=== PATIENT | female | born 1980 | race Caucasian/White ===

== ENCOUNTER 2018-01-05 12:58 | Emergency (ER) | payer BC ==
[2018-01-05 13:03] VITALS: BP 111/74; PULSE 64; TEMP 98.5; BMI 40.0
--- NOTE | 2018-01-05 13:53 | PDOC ---
History of Present Illness - General Chief Complaint: Pain Stated Complaint: LEFT FACIAL PAIN Time Seen by Provider: 01/05/18 13:11 - History of Present Illness Initial Comments: 01/05/18 13:48 37 F with h/o hypothyroid presents to ER with L facial pain x 3 days. Pt complains of pain under her L eye in her L cheekbone. Denies tooth or gum pain, denies swelling of gums. Denies fever/chills. Denies headache/neck pain. Denies ear pain. Pt went to dentist 2 days ago who did not see any signs of dental infection. She was given amoxicillin. Pt then went to urgent care yesterday and was started on augmentin for possible sinus infection. Pt states that her pain is still there today, so she came to this ER for evaluation. Past History - Past Medical History Allergies/Adverse Reactions: Allergies Allergy/AdvReac Type Severity Reaction Status Date / Time No Known Allergies Allergy Verified 01/05/18 12:59 Home Medications: Ambulatory Orders Amoxicillin/Potassium Clav [Augmentin 875-125 Tablet] 1 each PO BID 01/05/18 Levothyroxine [Synthroid -] 75 mcg PO DAILY 01/05/18 COPD: No Thyroid Disease: Yes - Suicide/Smoking/Psychosocial Hx Smoking History: Never smoked Review of Systems - Review of Systems Comments:: 01/05/18 13:53 "GENERAL/CONSTITUTIONAL: No fever or chills. No weakness. HEAD, EYES, EARS, NOSE AND THROAT: +L face pain, No change in vision. No ear pain or discharge. No sore throat. CARDIOVASCULAR: No chest pain or shortness of breath. RESPIRATORY: No cough, wheezing, or hemoptysis. GASTROINTESTINAL: No nausea, vomiting, diarrhea or constipation. GENITOURINARY: No dysuria, frequency, or change in urination. MUSCULOSKELETAL: No joint or muscle swelling or pain. No neck or back pain. SKIN: No rash NEUROLOGIC: No headache, vertigo, loss of consciousness, or change in strength/ sensation. ENDOCRINE: No increased thirst. No abnormal weight change. HEMATOLOGIC/LYMPHATIC: No anemia, easy bleeding, or history of blood clots. ALLERGIC/IMMUNOLOGIC: No hives or skin allergy. " *Physical Exam - Vital Signs Last Vital Signs Temp Pulse Resp BP Pulse Ox 98.5 F 64 18 111/74 99 01/05/18 12:58 01/05/18 12:58 01/05/18 12:58 01/05/18 12:58 01/05/18 12:58 - Physical Exam Comments: 01/05/18 13:53 "GENERAL: Awake, alert, and fully oriented, in no acute distress HEAD: No signs of trauma EYES: PERRLA, EOMI, sclera anicteric, conjunctiva clear ENT: NO sinus tenderness, TMs normal, good dentition without signs of dental abscess or infection, Auricles normal inspection, hearing grossly normal, nares patent, oropharynx clear without exudates. Moist mucosa NECK: Nontender, no stepoffs, Normal ROM, supple, no lymphadenopathy, JVD, or masses LUNGS: Breath sounds equal, clear to auscultation bilaterally. No wheezes, and no crackles HEART: Regular rate and rhythm, normal S1 and S2, no murmurs, rubs or gallops ABDOMEN: Soft, nontender, normoactive bowel sounds. No guarding, no rebound. No masses EXTREMITIES: Normal range of motion, no edema. No clubbing or cyanosis. No cords, erythema, or tenderness NEUROLOGICAL: Cranial nerves II through XII intact. 5/5 strength and sensation in all extremities, Normal speech, normal gait, normal cerebellar function SKIN: Warm, Dry, normal turgor, no rashes or lesions noted. " Medical Decision Making - Medical Decision Making 01/05/18 13:54 37 F with L facial pain. NO evidence of dental infection on exam. Pt without any sinus tenderness but given location of pain, early sinus infection is possible. Pt with no facial droop to suggest brito's. No mastoid tenderness or signs of otitis. No temporal artery tenderness. Pain may be 2/2 trigeminal neuralgia. - Supportive care - F/u ENT and neuro Pt is well appearing, with normal vitals. Clinically stable for DC at this time. I discussed the physical exam findings, ancillary test results and final diagnoses with the patient. I answered all of the patient's questions. The patient was satisfied with the care received and felt comfortable with the discharge plan and treatment plan. The patient agrees to follow up with the primary care physician within 24-72 hours. *DC/Admit/Observation/Transfer Diagnosis at time of Disposition: Facial pain - Discharge Dispostion Disposition: HOME Condition at time of disposition: Stable - Referrals Referrals: Steve Mota MD [Staff Physician] - Froilan Bass MD [Staff Physician] - - Patient Instructions Printed Discharge Instructions: DI for Trigeminal Neuralgia Additional Instructions: Continue taking the antibiotics as prescribed. You may have a sinus infection. If your symptoms do not improve with the antibiotics, your pain may be due to a condition called trigeminal neuralgia. Call the numbers provided to make appointments with our [id number] (ENT) specialist for evaluation of your sinuses, as well as with our neurologist for evaluation of possible trigeminal neuralgia. If you experience worsening pain, fevers, headache, eye pain, neck pain, or any other concerning symptoms, return to the ER immediately. - Post Discharge Activity - Attestations Physician Attestion: 01/05/18 13:58 I, Dr. Jono Lopez MD, attest that this document has been prepared under my direction and personally reviewed by me in its entirety. I further attest, that it accurately reflects all work, treatment, procedures and medical decision -making performed by me.
== END 2018-01-05 15:05 | disposition home or self-care (01) ==
LOC: FER 12:58
DX: G50.1 Atypical facial pain (principal)
CPT/HCPCS: 99282-25